=== PATIENT | female | born 1970 | race Caucasian/White ===

== ENCOUNTER 2019-06-20 17:51 | Inpatient (IN) | payer BC ==
[~2019-06-20] VITALS: Ht 152.4 cm; Wt 57.6 kg
[2019-06-20 18:01] VITALS: BP 150/95
--- NOTE | 2019-06-20 18:32 | NUR ---
48 Y FEMALE C/O R SIDED UPPER BACK PAIN THAT RADIATES TO THE CENTER OF THE BACK 09/04 AND STABBING X1 WEEK. PT STATES THAT SHE WAS DX WITH GALLSTONES 05/24/19 AND IS DUE TO MEET WITH A SPECIALIST IN JUNE BUT THE PAIN HAS BECOME UNBEARABLE. DENIES N/V/D/FEVER. BP 150/95. AA0X4. BED IS DOWN, LOCKED, BED RAIL X 1, ERMD TO SEE PT HX: HTN RX: METHYLDOPA, LOSARTAN, HYDROCHLOROTHIAZIDE
--- NOTE | 2019-06-20 19:09 | NUR ---
REPORT GIVEN TO NOEMI BARTLETT, TRANSFER OF CARE
--- NOTE | 2019-06-20 19:13 | NUR ---
RECIEVED REPORT FROM AM NURSE. PT LAYING IN BED, FAMILY AT BEDSIDE. RR EVEN AND UNLABORED. ALL NEEDS MET.
--- NOTE | 2019-06-20 19:32 | NUR ---
DR SALAMANCA AT BEDSIDE FOR MSE
[2019-06-20] MEDS ORDERED: ONDANSETRON 4 MG/2 ML VIAL IVP ONE (19:50)
[2019-06-20] MEDS ORDERED: MORPHINE SULFATE 4 MG/ML SYR IVP ONE (19:50)
[2019-06-20] MEDS ORDERED: LOSARTAN 50 MG TAB PO SCH (20:20)
[2019-06-20 20:31] LABS: BASOPHILS # (AUTO) 0.1 K/uL (0.00-0.22); EOSINOPHILS # (AUTO) 0.2 K/uL (0-0.4); EOSINOPHILS % (AUTO) 2.7 % (0.0-4.0); HEMATOCRIT 32.7 % (36-48); LYMPHOCYTES # (AUTO) 1.2 K/uL (2.5-16.5); LYMPHOCYTES % (AUTO) 21.6 % (20.5-51.1); MEAN CORPUSCULAR HEMOGLOBIN 33 pg (27-31); MEAN CORPUSCULAR HGB CONC 34 g/dL (33-37); MEAN CORPUSCULAR VOLUME 98.3 fL (80-94); MONOCYTES # (AUTO) 0.4 K/uL (0.8-1.0); MONOCYTES % (AUTO) 7.6 % (1.7-9.3); NEUTROPHILS # (AUTO) 3.9 K/uL (1.8-7.7); NEUTROPHILS % (AUTO) 67.1 % (42.2-75.2); PLATELET COUNT (AUTO) 175 K/uL (140-450); RED BLOOD CELL COUNT(AUTO) 3.33 MIL/uL (4.20-5.40); RED CELL DISTRIBUTION WIDTH 15.7 % (11.6-13.7); WHITE BLOOD COUNT (AUTO) 5.7 K/uL (4.8-10.8)
[2019-06-20 20:37] LABS: APPEARANCE,URINE CLEAR (CLEAR); BILIRUBIN,URINE NEGATIVE (NEGATIVE); BLOOD, URINE NEGATIVE (NEGATIVE); COLOR,URINE YELLOW (YELLOW); LEUKOCYTE ESTERASE ,URINE NEGATIVE (NEGATIVE); NITRITE, URINE NEGATIVE (NEGATIVE); UGLUCOSE NEGATIVE (NEGATIVE)
[2019-06-20 20:54] LABS: ALBUMIN 4.4 g/dL (3.4-5.0); ANION GAP 14.7 (8-16); CARBON DIOXIDE 28.4 mmol/L (21-32); CREATININE 1.2 mg/dL (0.6-1.3); POTASSIUM 4.1 mmol/L (3.5-5.1); TOTAL BILIRUBIN 0.9 mg/dL (0.0-1.0)
[2019-06-20] MEDS ORDERED: ONDANSETRON 4 MG/2 ML VIAL IM/IVP PRN (22:10)
--- NOTE | 2019-06-20 22:30 | NUR ---
PT LAYING IN BED, PT'S AT BEDSIDE. DR XAVIER AT BEDSIDE. REPORTS 8/10 PAIN. RR EVEN AND UNLABORED. ALL NEEDS MET.
--- NOTE | 2019-06-20 22:32 | NUR ---
Patient will be admitted to care of DR CAPPS. Admited to TELE. Will go to room 119B. Belongings list completed. Report to FEBRUARY RN AT BEDSIDE.
[2019-06-20 22:40] VITALS: BP 168/94
[2019-06-20] MEDS ORDERED: KETOROLAC 15 MG/ML VIAL IM PRN (22:40)
--- NOTE | 2019-06-20 22:40 | NUR ---
RECEIVED PT FROM ER NURSE. PT AWAKE, ALERT AND ORIENTED X4. ABLE TO ANSWER QUESTIONS AND FOLLOW COMMANDS. VISIBLE CHEST RISE AND FALL ON ROOM AIR, NO NOTED DISTRESS. LEFT A/C 20G INTACT AND PATENT. AMBULATED FROM GURNEY TO BED WITH STEADY GAIT. SKIN INTACT. AT BEDSIDE. SAFETY MEASURES IN PLACE. ORIENTED TO CALL LIGHT CALL LIGHT WITHIN REACH.
[2019-06-20] MEDS ORDERED: LOSA50TA66 PO (22:49)
[2019-06-20] MEDS ORDERED: ORE25 PO (22:49)
[2019-06-20] MEDS ORDERED: [UNRECOGNIZED DRUG - CODE] PO (22:49)
[2019-06-20 23:01] LABS: BARBITURATE, URINE NEG. ng/ml (NEG <=200); BENZODIAZEPINE, URINE NEG. ng/mL (NEG <=200); CANNABINOID, URINE NEG. ng/mL (NEG <=50); COCAINE, URINE NEG. ng/mL (NEG <=300); OPIATE, URINE NEG. ng/mL (NEG <=2000); PHENCYCLIDINE SCREEN,URINE NEG. ng/mL (NEG <=25)
[2019-06-20 23:03] LABS: PROTHROMBIN TIME 10.4 secs (10.8-13.4)
[2019-06-20] MEDS: MORPHINE SULFATE 2 MG/ML SYR IVP PRN (23:09)
[2019-06-20] MEDS: NACL 0.9% 1,000 ML IV SCH (23:09)
--- NOTE | 2019-06-20 23:09 | NUR ---
MORPHINE GIVEN FOR 07/05 ABDOMINAL PAIN. RESIDENT MD AWARE OF BP 168/94.
[2019-06-20] MEDS ORDERED: METHYLDOPA 250 MG TAB PO SCH (23:10)
[2019-06-20 23:11] LABS: MAGNESIUM 1.2 mg/dL (1.8-2.4); PHOSPHORUS 4.3 mg/dL (2.5-4.9); THYROID STIMULATING HORMONE 0.54 uIU/mL (0.34-3.74)
[2019-06-20] MEDS ORDERED: MAG SULF 2000 MG/WATER PREMIX 50 ML IV SCH (23:30)
[2019-06-20] MEDS ORDERED: ALBUTEROL SULFATE/IPRATROPIU 3 ML SOL IH PRN (23:45)
[2019-06-21] VITALS: BP 142/92
[2019-06-21] MEDS: MELATONIN 3 MG TAB PO PRN ×2 (00:56→20:32)
--- NOTE | 2019-06-21 00:56 | NUR ---
MELATONIN GIVEN FOR SLEEPLESSNESS. PT TOLERATED WELL.
--- NOTE | 2019-06-21 02:30 | NUR ---
ROUNDED ON PT. PT AWAKE, WATCHING TV. NO C/O DISCOMFORT. ALL NEEDS ATTENDED TO. CALL LIGHT WITHIN REACH.
[2019-06-21 04:30] VITALS: BP 136/85
[2019-06-21] MEDS: MORPHINE SULFATE 2 MG/ML SYR IVP PRN (04:37)
--- NOTE | 2019-06-21 04:37 | NUR ---
MORPHINE GIVEN FOR 8/10 ABDOMINAL PAIN
[2019-06-21] MEDS: NACL 0.9% 1,000 ML IV SCH ×3 (06:28→23:08)
[2019-06-21 07:12] LABS: BASOPHILS # (AUTO) 0.1 K/uL (0.00-0.22); BASOPHILS % (AUTO) 1.2 % (0.0-2.0); EOSINOPHILS # (AUTO) 0.1 K/uL (0-0.4); EOSINOPHILS % (AUTO) 2.4 % (0.0-4.0); HEMATOCRIT 34.9 % (36-48); HEMOGLOBIN 11.7 g/dL (12.0-16.0); LYMPHOCYTES # (AUTO) 0.8 K/uL (2.5-16.5); MEAN CORPUSCULAR HEMOGLOBIN 34 pg (27-31); MEAN CORPUSCULAR HGB CONC 34 g/dL (33-37); MEAN CORPUSCULAR VOLUME 99.8 fL (80-94); MONOCYTES # (AUTO) 0.4 K/uL (0.8-1.0); MONOCYTES % (AUTO) 7.2 % (1.7-9.3); NEUTROPHILS # (AUTO) 3.6 K/uL (1.8-7.7); NEUTROPHILS % (AUTO) 73.2 % (42.2-75.2); PLATELET COUNT (AUTO) 174 K/uL (140-450); RED CELL DISTRIBUTION WIDTH 15.5 % (11.6-13.7); WHITE BLOOD COUNT (AUTO) 4.9 K/uL (4.8-10.8)
--- NOTE | 2019-06-21 07:15 | NUR ---
ENDORSED TO AM NURSE. PT IN STABLE CONDITION.
--- NOTE | 2019-06-21 07:16 | NUR ---
RECEIVED REPORT FROM BELT GLASS SANDER NURSE. PATIENT LYING DOWN IN BED SLEEPING, AROUSABLE BY VOICE. NO DISTRESS NOTED. AAOX2, CALM, COOPERATIVE, SKIN COLOR APPROPRIATE TO ETHNICITY, WARM TO TOUCH. SKIN INTACT. RESPIRATIONS EVEN, UNLABORED, ON O2 3L/MIN VIA NC. IV SITE INTACT, PATENT, AND INFUSING IVF PER MD ORDERS. REVIEWED PLAN OF CARE WITH PATIENT. PATIENT VERBALIZED UNDERSTANDING. SAFETY MEASURES IN PLACE, CALL LIGHT WITHIN REACH. WILL CONTINUE TO MONITOR. Addendum: 06/21/19 at 0807 by Red Pathak RN PLEASE DISREGARD NOTE ABOVE. WRONG PATIENT.
[2019-06-21] MEDS: ALBUTEROL SULFATE/IPRATROPIU 3 ML SOL IH SCH ×3 (07:17→19:24)
--- NOTE | 2019-06-21 07:17 | NUR ---
RECEIVED REPORT FROM SENIOR ACCOUNTS PAYABLE CLERK NURSE. PATIENT SITTING DOWN IN BED COMFORTABLY. NO DISTRESS NOTED. DENIES ANY PAIN. AAOX4, CALM, COOPERATIVE, SKIN COLOR APPROPRIATE TO ETHNICITY, WARM TO TOUCH. SKIN INTACT. IV SITE INTACT, PATENT, AND INFUSING IVF PER MD ORDERS. ABDOMEN SOFT, NON-DISTENDED. RESPIRATIONS EVEN, UNLABORED, ON ROOM AIR. REVIEWED PLAN OF CARE WITH PATIENT. PATIENT VERBALIZED UNDERSTANDING. SAFETY MEASURES IN PLACE, CALL LIGHT WITHIN REACH. WILL CONTINUE TO MONITOR.
[2019-06-21 08:00] VITALS: BP 125/92
[2019-06-21] MEDS: HYDROCHLOROTHIAZIDE 25 MG TAB PO SCH (08:43)
[2019-06-21] MEDS ORDERED: APAP/BUTAL/CAFF 325/50/40 MG 1 TAB PO PRN (08:45)
[2019-06-21] MEDS ORDERED: METHYLDOPA 250 MG TAB PO SCH (09:00)
[2019-06-21] MEDS ORDERED: MAG SULF 2000 MG/WATER PREMIX 50 ML IV SCH (09:00)
[2019-06-21] MEDS ORDERED: METHYLDOPA 250MG TABLET PO SCH (09:27)
--- NOTE | 2019-06-21 09:46 | NUR ---
PATIENT SITTING IN BED WITH COMPLAINTS OF MILD HEADACHE. FIORICET GIVEN PER MD ORDERS. OTHER SCHEDULED MEDICATIONS DUE GIVEN. WILL CONTINUE TO MONITOR .
[2019-06-21] MEDS ORDERED: LORazepam 0.5 MG TAB PO PRN (10:40)
[2019-06-21] MEDS ORDERED: PANTOPRAZOLE 40 MG TABEC PO SCH (11:15)
--- NOTE | 2019-06-21 11:15 | NUR ---
PATIENT SITTING IN BED, WATCHING TV. NO DISTRESS NOTED. CONDITION UNCHANGED. WILL CONTINUE TO MONITOR.
[2019-06-21 12:00] VITALS: BP 138/90
[2019-06-21] MEDS: chlordiazePOXIDE 25 MG CAP PO SCH ×2 (12:54→17:06)
[2019-06-21] MEDS: METHYLDOPA 250MG TABLET PO SCH ×2 (12:56→17:06)
--- NOTE | 2019-06-21 12:56 | NUR ---
PATIENT SITTING IN BED WATCHING TV AND TALKING WITH FAMILY MEMBER AT BEDSIDE. NO DISTRESS NOTED. DENIES ANY PAIN. SCHEDULED MEDICATIONS DUE GIVEN. WILL CONTINUE TO MONITOR.
[2019-06-21 16:00] VITALS: BP 103/75
--- NOTE | 2019-06-21 17:07 | NUR ---
SCHEDULED MEDICATIONS DUE GIVEN. CONDITION UNCHANGED. WILL CONTINUE TO MONITOR.
--- NOTE | 2019-06-21 19:25 | NUR ---
GAVE REPORT TO EMPLOYEE OPERATIONS EXAMINER NURSE FOR CONTINUITY OF CARE. PATIENT IN STABLE CONDITION.
--- NOTE | 2019-06-21 19:26 | NUR ---
REPORT RECEIVED FROM AM NURSE. PT AWAKE, ALERT AND ORIENTED. ABLE TO ANSWER QUESTIONS AND FOLLOW COMMANDS. VISIBLE CHEST RISE AND FALL ON ROOM AIR, NO DISTRESS NOTED. LEFT AC 20G INTACT AND INFUSING WELL. NO C/O DISCOMFORT. SAFETY MEASURES IN PLACE. CALL LIGHT WITHIN REACH.
--- NOTE | 2019-06-21 20:42 | NUR ---
HELD LOSARTAN MEDICATION DUE TO BP BEING 89/53. INFORMED RESIDENT MD ALARCON. WILL RECHECK BP IN A HOUR.
[2019-06-21] MEDS ORDERED: LOSARTAN 50 MG TAB PO SCH (21:00)
--- NOTE | 2019-06-21 21:42 | NUR ---
REASSESSED BP. BP 93/62 AT THIS TIME. RESIDENT MD ALARCON MADE AWARE. NO NEW ORDERS GIVEN.
[2019-06-22] VITALS: BP 99/61
--- NOTE | 2019-06-22 | NUR ---
VITALS TAKEN. PT BP 99/61, HR 65. PT EASILY AWAKEN BY VOICE. PT DENIES PAIN. NO VISIBLE SIGNS OF DISTRESS. CALL LIGHT WITHIN REACH. WILL CONTINUE TO MONITOR.
--- NOTE | 2019-06-22 02:35 | NUR ---
ROUNDED ON PT. VISIBLE CHEST RISE AND FALL. NO DISTRESS NOTED.
--- NOTE | 2019-06-22 04:08 | NUR ---
PT GIVEN TORADOL FOR 4/10 HEAD PAIN.
[2019-06-22] MEDS: NACL 0.9% 1,000 ML IV SCH (04:33)
[2019-06-22 05:40] LABS: CHOL/HDL RATIO 2.9 (1-4.5)
--- NOTE | 2019-06-22 06:32 | NUR ---
ROUNDED ON PT. PT RESTING WITH EYES CLOSED. VISIBLE CHEST RISE AND FALL. NO NOTED DISTRESS. CALL LIGHT WITHIN REACH.
[2019-06-22] MEDS: ALBUTEROL SULFATE/IPRATROPIU 3 ML SOL IH SCH (06:57)
--- NOTE | 2019-06-22 07:10 | NUR ---
RECEIVED REPORT TO PROFESSOR OF BUSINESS NURSE AT BEDSIDE FOR CONTINUITY OF CARE. PATIENT SLEEPING, AOX4, RESPIRATIONS EVEN AND UNLABORED ON ROOM AIR.NO SIGN OF DISTRESS OR SOB NOTED. IV SITE INTACT, ASYMPTOMATIC, PATENT, INFUSING IVF WELL. UPDATED BOARD. SAFETY PRECAUTIONS IN PLACE, CALL LIGHT WITHIN REACH, WILL CONTINUE TO MONITOR PATIENT.
[2019-06-22] MEDS ORDERED: PANT40EC28 PO (07:34)
[2019-06-22] MEDS ORDERED: LIB25 PO (07:34)
[2019-06-22] MEDS ORDERED: MULT-405 PO (07:34)
[2019-06-22] MEDS ORDERED: THIA-34 PO (07:34)
[2019-06-22] MEDS ORDERED: FOLI1TAB90 PO (07:34)
[2019-06-22 07:39] LABS: ANION GAP 12.1 (8-16); CARBON DIOXIDE 28.1 mmol/L (21-32); CREATININE 0.8 mg/dL (0.6-1.3); POTASSIUM 4.2 mmol/L (3.5-5.1)
[2019-06-22 07:46] LABS: PHOSPHORUS 3.7 mg/dL (2.5-4.9)
[2019-06-22 07:47] LABS: BASOPHILS % (AUTO) 0.9 % (0.0-2.0); EOSINOPHILS # (AUTO) 0.2 K/uL (0-0.4); EOSINOPHILS % (AUTO) 3.7 % (0.0-4.0); HEMATOCRIT 29.8 % (36-48); HEMOGLOBIN 10.1 g/dL (12.0-16.0); LYMPHOCYTES # (AUTO) 0.9 K/uL (2.5-16.5); LYMPHOCYTES % (AUTO) 19.3 % (20.5-51.1); MEAN CORPUSCULAR HEMOGLOBIN 34 pg (27-31); MEAN CORPUSCULAR HGB CONC 34 g/dL (33-37); MEAN CORPUSCULAR VOLUME 100.9 fL (80-94); MONOCYTES # (AUTO) 0.4 K/uL (0.8-1.0); MONOCYTES % (AUTO) 9.2 % (1.7-9.3); NEUTROPHILS % (AUTO) 66.9 % (42.2-75.2); PLATELET COUNT (AUTO) 142 K/uL (140-450); RED BLOOD CELL COUNT(AUTO) 2.95 MIL/uL (4.20-5.40); RED CELL DISTRIBUTION WIDTH 16.2 % (11.6-13.7); WHITE BLOOD COUNT (AUTO) 4.6 K/uL (4.8-10.8)
[2019-06-22 08:00] VITALS: BP 127/79
[2019-06-22] MEDS: chlordiazePOXIDE 25 MG CAP PO SCH (08:38)
[2019-06-22] MEDS: HYDROCHLOROTHIAZIDE 25 MG TAB PO SCH (08:39)
[2019-06-22] MEDS: METHYLDOPA 250MG TABLET PO SCH (08:40)
--- NOTE | 2019-06-22 08:41 | NUR ---
ORDERED MEDICATIONS GIVEN. PATIENT TOLERATED THEM WELL. NO COMPLAINTS AT THIS TIME. WILL CONTINUE TO MONITOR PATIENT.
[2019-06-22] MEDS ORDERED: PANTOPRAZOLE 40 MG TABEC PO SCH (09:00)
[2019-06-22] MEDS ORDERED: FOLIC ACID 1 MG TAB PO SCH (09:00)
[2019-06-22] MEDS ORDERED: MULTIVITAMIN 1 TAB PO SCH (09:00)
[2019-06-22] MEDS ORDERED: THIAMINE 100 MG TAB PO SCH (09:00)
--- NOTE | 2019-06-22 09:00 | NUR ---
UPDATED PATIENT WITH PLAN OF CARE, SHE VERBALIZED UNDERSTANDING. NO COMPLAINTS AT THIS TIME. WILL CONTINUE TO MONITOR PATIENT.
--- NOTE | 2019-06-22 10:15 | NUR ---
PATIENT'S OWN MEDICATION PICKED UP FROM PHARMACY. MEDICATIONS GIVEN BACK TO PATIENT.
--- NOTE | 2019-06-22 10:50 | NUR ---
PATIENT DISCHARGE INSTRUCTIONS AND EDUCATION GIVEN TO PATIENT. SHE VERBALIZED UNDERSTANDING ABOUT TAKING MEDICATIONS PRESCRIBED, FOLLOW UP WITH PCP AND OUTPATIENT PROCEDURES. IV REMOVED, IV CATHETER INTACT, MINIMAL BLEEDING NOTED. ID BANDS CUT. PATIENT IS CHANGING INTO HER OWN CLOTHING IN PREPARATION TO GO HOME.
--- NOTE | 2019-06-22 11:00 | NUR ---
PATIENT AMBULATED OFF FLOOR ON STEADY GAIT WITH . PATIENT DISCHARGED HOME. PATIENT TOOK ALL HER BELONGINGS WITH HER. PATIENT IN STABLE CONDITION.
== END 2019-06-22 11:00 | disposition home or self-care (01) | DRG 432 ==
LOC: MED 17:51 → MTU 22:08
PROVIDERS: ADMIT Family Medicine; ATTEND Family Medicine
DX: K70.10 Alcoholic hepatitis without ascites (principal); K85.90 Acute pancreatitis without necrosis or infection, unspecified; K29.20 Alcoholic gastritis without bleeding; E78.5 Hyperlipidemia, unspecified; E83.42 Hypomagnesemia; F10.20 Alcohol dependence, uncomplicated; I10 Essential (primary) hypertension; E78.00 Pure hypercholesterolemia, unspecified; K21.9 Gastro-esophageal reflux disease without esophagitis; D64.9 Anemia, unspecified; R74.0 Nonspecific elevation of levels of transaminase and lactic acid dehydrogenase [LDH]
CPT/HCPCS: 36415; 76705; 80048; 80053; 80305; 81003; 81025; 82150; 83036; 83690; 83735; 84100; 84443; 85025; 85610; 85730; 87081; 94640; 96374; 96375; 99285; J1885; J2270; J2405; J3475; J7030; J7620; Q0092